=== PATIENT | female | born 1965 | race Caucasian/White ===

== ENCOUNTER 2021-05-30 14:08 | Emergency (ER) | payer OTHER, SELFPAY ==
[2021-05-30 14:11] VITALS: BP 142/87; PULSE 73; RESP 20; TEMP 37; O2SAT 100
--- NOTE | 2021-05-30 14:28 | ED.URI ---
HPI - URI/Sore Throat General Chief Complaint: Upper Respiratory Infection Stated Complaint: chills headaches nausea Time Seen by Provider: 05/30/21 14:30 Source: patient and RN notes reviewed Mode of arrival: ambulatory Limitations: no limitations History of Present Illness HPI Narrative: 56-year-old female presents with concern for 5-day history of fever, chills, body aches, fatigue, headache, ear and facial pain, reports diarrhea, vomiting and nausea. Reports she had Covid at the beginning of the year and has been vaccinated. She denies cough, shortness of breath. Reports she has been taking [id number] remedies with no relief. MD elicited complaint: other (headaches) Related Data Home Medications Medication Instructions Recorded Confirmed lovastatin 40 mg PO DAILY 05/30/21 05/30/21 Allergies Allergy/AdvReac Type Severity Reaction Status Date / Time tree and shrub pollen Allergy Mild Itching Verified 05/30/21 14:25 bupropion Allergy Unknown Swelling Verified 05/30/21 14:25 of Lip/Tongue/Throat Grass Allergy Mild Itching Uncoded 05/30/21 14:31 Shrimp Allergy Unknown ITCHING Uncoded 05/30/21 14:31 Review of Systems Review of Systems: CONSTITUTIONAL: Reports malaise, chills, sweats, fever. EYES: Denies visual changes, redness, or discharge. ENT: Reports rhinorrhea, congestion, sinus pain, and sore throat. Reports ear pain CARDIOVASCULAR: Denies chest pain, palpitations, or edema. RESPIRATORY: Denies cough. Denies dyspnea. GASTROINTESTINAL: Denies abdominal pain. Reports nausea, vomiting, diarrhea SKIN: Denies rash or itching. MUSCULOSKELETAL: Reports myalgia. NEUROLOGIC: Reports headache. All systems reviewed & are unremarkable except as noted in HPI and below PMFSH Past Medical History Medical History (Updated 05/30/21 @ 14:39 by Elizabeth Jane NP) Anxiety Depression Essential (primary) hypertension Hyperlipidemia Surgical History Surgical History (Updated 09/02/19 @ 16:35 by Elsie Nugent NP) History of carpal tunnel release of both wrists 2019 Family History Family History (Updated 06/25/16 @ 15:35 by DOCTOR UNKNOWN) Mother Diabetes mellitus Acute myocardial infarction Cerebrovascular accident Family history of congestive heart failure Family history of type 2 diabetes mellitus Family history of heart disease in male family member before age 55 Father Acute myocardial infarction Family history of heart disease in male family member before age 55 Social History Social History Smoking status: Never smoker Alcohol intake: current Comments At time of signature, agree with nursing past medical, surgical, social and family history. There is no relevant family history pertinent to the presenting complaint Exam Narrative: GENERAL: Well-appearing, well-nourished, and in no acute distress. HEAD: Normocephalic EYES: PERRLA, conjunctivae clear ENT: Mucous membranes moist. TM pearly castillo with dull light reflex bilaterally; no tragal tenderness. Oropharynx erythematous without lesions. NECK: Supple. No lymphadenopathy CHEST: Clear to auscultation, breath sounds equal. No wheezing, rhonchi, rales, or stridor. No respiratory distress, speaks in full sentences. HEART: Regular rate and rhythm. No murmur heard. SKIN: Warm, dry, no rash. NEURO: Alert and oriented x3. PSYCH: Normal mood and affect Course Course Emergency Course: Patient is aware of diagnosis, understands and agrees to treatment plan. Anticipatory guidance given. Patient agrees to follow-up as directed and is aware of reasons to seek care at the emergency department. Portions of this record may have been created with voice recognition software Vital Signs Vital signs: Vital Signs Temperature 98.6 F 05/30/21 14:11 Pulse Rate 73 05/30/21 14:11 Respiratory Rate 20 05/30/21 14:11 Blood Pressure 142/87 H 05/30/21 14:11 Pulse Oximetry 100 05/30/21 14:11 Temperature 98.6 F
[2021-05-30 14:31] VITALS: BP 142/87; PULSE 73; RESP 20; TEMP 37; O2SAT 100
== END 2021-05-30 14:43 | disposition home or self-care (01) ==
PROVIDERS: Emergency Provider Nurse Practitioner
DX: J10.1 Influenza due to other identified influenza virus with other respiratory manifestations (principal); I10 Essential (primary) hypertension; E78.5 Hyperlipidemia, unspecified
CPT/HCPCS: 87804; 99213; G0463

== ENCOUNTER → 2021-08-02 09:04 | Outpatient (CLI) | payer OTHER, SELFPAY ==
[2021-08-02 21:12] LABS: SARS-CoV-2 RNA PCR Negative
== END ==
PROVIDERS: PCP Family Medicine; Visit Provider Family Medicine
DX: U07.1 COVID-19 (principal)
CPT/HCPCS: C9803; U0003; U0005

== ENCOUNTER 2021-12-24 10:06 | Outpatient (CLI) | payer OTHER, SELFPAY ==
--- NOTE | ~2021-12-24 | MM_ITS ---
EXAMINATION: MM screening harjit BI w jada HISTORY: Screening TECHNIQUE: Craniocaudal and mediolateral oblique 3-D tomosynthesis images were obtained and synthetic 2-D images were generated. CAD analysis was submitted and interpreted. COMPARISON: No prior mammogram is available for comparison at this institution. BREAST PARENCHYMAL COMPOSITION: The breasts are heterogenously dense, which may obscure small masses FINDINGS: There is no evidence of suspicious mass, calcification, or architectural distortion to sugg est malignancy in either breast. There has been no suspicious interval change. IMPRESSION: 1. No mammographic evidence of malignancy. 2. Recommend routine screening mammography in one year. BI-RADS Category 1: Negative Reviewed, dictated and finalized at location A.
== END 2021-12-24 10:07 | disposition home or self-care (01) ==
PROVIDERS: PCP Family Medicine; Visit Provider Nurse Practitioner Family
DX: Z12.31 Encounter for screening mammogram for malignant neoplasm of breast (principal)
CPT/HCPCS: 77063; 77067

== ENCOUNTER 2022-01-07 14:41 | Outpatient (CLI) | payer OTHER, SELFPAY ==
--- NOTE | ~2022-01-07 | MR_ITS ---
EXAMINATION: MR knee LT wo con DATE: 01/07/2022 16:07 INDICATION: Left knee pain. TECHNIQUE: Magnetic resonance imaging (MRI) of the left knee was performed without intravenous contra st. Sequences included axial PD-weighted FS FSE, coronal PD-weighted FSE and PD-weighted FS FSE, sagi ttal PD-weighted FSE, and sagittal T2-weighted FS FSE. COMPARISON: X-ray left knee 12/21/2021. FINDINGS: Medial compartment: Intact meniscus. Mild cartilage thinning and partial-thickness cartilage signal abnormality on the me dial condyle. Mild osteophytosis. Lateral compartment: Degenerative signal change within the body of the lateral meniscus. Mild lateral condylar cartilage t hinning. Partial-thickness cartilage signal abnormality on the lateral plateau. Mild osteophytosis. Patellofemoral compartment: Mild partial thickness cartilage signal abnormality on the medial facet. Mild osteophytosis. Intact r [place]. Ligaments and tendons: ACL, PCL, LCL, and MCL are intact. Flexor and extensor tendons are intact. Mild T2 hyperintensity maru p to the pes anserine insertion. Fluid: Minimal joint fluid. Tiny Hagan's cyst. Osseous/other: Bone marrow signal is normal. IMPRESSION: 1. Mild tricompartmental osteoarthritis of the left knee. 2. Pes anserine bursitis. Reviewed, dictated and finalized at location K.
== END 2022-01-07 14:42 | disposition home or self-care (01) ==
PROVIDERS: PCP Family Medicine; Visit Provider Nurse Practitioner Family
DX: M17.12 Unilateral primary osteoarthritis, left knee (principal); M71.562 Other bursitis, not elsewhere classified, left knee
CPT/HCPCS: 73721

== ENCOUNTER 2022-04-23 11:03 | Outpatient (CLI) | payer OTHER, SELFPAY | END 2022-04-23 11:04 | disposition home or self-care (01) | LOC: ANHGOSHLAB 11:07 | PROVIDERS: PCP Family Medicine; Visit Provider Nurse Practitioner Family | DX: E78.5 Hyperlipidemia, unspecified (principal); I10 Essential (primary) hypertension | CPT/HCPCS: 36415 ==

== ENCOUNTER 2023-05-15 08:55 | Outpatient (CLI) | payer OTHER, SELFPAY ==
[2023-05-15 12:41] LABS: Basophils Absolute Auto 0.1 K/mm3 (0.0-0.1); Basophils Percent Auto 0.7 % (0.2-1.2); Eosinophils Absolute Auto 0.2 K/mm3 (0-0.3); Eosinophils Percent Auto 2.3 % (0-4.4); Hematocrit 44.3 % (37.0-47.0); Immature Granulocyte Absolute 0.06 K/mm3 (0.00-0.031); Immature Granulocyte Percent A 0.7 % (0-0.5); Lymphocytes Absolute Auto 3.69 K/mm3 (0.9-3.2); Lymphocytes Percent Auto 43.1 % (18.3-44.2); Mean Corpuscular HGB Conc 31.6 g/dl (32-36); Mean Corpuscular Hemoglobin 30.6 pg (26-34); Mean Corpuscular Volume 96.9 fl (80-100); Monocytes Absolute Auto 0.6 K/mm3 (0.1-0.6); Monocytes Percent Auto 7.5 % (2.6-8.5); Neutrophils Absolute Auto 3.9 K/mm3 (1.3-6.7); Neutrophils Percent Auto 45.7 % (45.5-73.1); Platelet Count Result 288 k/mm3 (150-375); Red Blood Count 4.57 M/mm3 (4.2-5.4); White Blood Count 8.6 K/mm3 (4.5-10.0)
[2023-05-15 17:30] LABS: Alanine Aminotransferase 45 U/L (6-35); Albumin Level 4.6 g/dL (3.5-5.1); Alkaline Phosphatase 81 U/L (38-126); Anion Gap 5 mmol/L (8-16); Aspartate Amino Transferase 44 U/L (14-36); Bilirubin,Total 0.5 mg/dL (0.2-1.3); Blood Urea Nitrogen 19 mg/dL (7-17); Calcium 9.7 mg/dL (8.4-10.2); Carbon Dioxide 26 mmol/L (22-30); Chloride 107 mmol/L (98-107); Cholesterol 264 mg/dL (0-200); Estimated Glomerular Filt Rate > 60; Glucose 88 mg/dL (65-110); HDL Direct 47 mg/dL; Potassium 4.6 mmol/L (3.4-5.0); Sodium 138 mmol/L (137-145); Triglycerides 266 mg/dL (<150)
[2023-05-15 17:42] LABS: LDL Cholesterol Direct 170 mg/dL
[2023-05-15 19:31] LABS: Vitamin D 25 Hydroxy 29.2 ng/mL
== END 2023-05-15 08:56 | disposition home or self-care (01) ==
LOC: ANHGOSHLAB 08:56
PROVIDERS: PCP Family Medicine; Visit Provider Family Medicine
DX: Z00.00 Encounter for general adult medical examination without abnormal findings (principal); E78.5 Hyperlipidemia, unspecified; E55.9 Vitamin D deficiency, unspecified; I10 Essential (primary) hypertension; E53.8 Deficiency of other specified B group vitamins
CPT/HCPCS: 36415; 80053; 80061; 82306; 82607; 84443; 85025

== ENCOUNTER 2023-07-15 08:04 | Emergency (ER) | payer OTHER, SELFPAY ==
[2023-07-15 08:14] VITALS: BP 137/70; PULSE 107; RESP 18; TEMP 37.1; O2SAT 95
--- NOTE | 2023-07-15 08:20 | ED.URI ---
HPI - URI/Sore Throat General Chief Complaint: Upper Respiratory Infection Stated Complaint: Sore Throat/Congestion Time Seen by Provider: 07/15/23 08:21 Source: patient, RN notes reviewed and old records reviewed Mode of arrival: ambulatory Limitations: no limitations History of Present Illness HPI Narrative: 58yearold female who presents to [facility] with complaints of sore throat, cough and some bilateral ear pain, nasal drainage since Friday morning. Patient reports she has been taking Zyrtec and DayQuil and NyQuil for her symptoms without resolution. Patient reports no known sick contacts. Patient reports she did have COVID over . Patient reports feeling fatigued,denies any body aches,fevers, or chills. MD elicited complaint: cough, sore throat, rhinorrhea, nasal congestion and other (ear pain) Pertinent past history: other (Covid over ) Onset (ago): day(s) (3) Pain scale (0-10): 4 Able to tolerate fluids by mouth: Yes Exacerbating factors: swallowing Treatments prior to arrival: other (Zyrtec, DayQuil and NyQuil) Related Data Home Medications Medication Instructions Recorded Confirmed cetirizine 10 mg tablet (Zyrtec) 10 mg PO DAILY 10/02/21 07/15/23 buspirone 5 mg tablet 5 mg PO BID PRN anxiety 05/15/23 07/15/23 Allergies Allergy/AdvReac Type Severity Reaction Status Date / Time tree and shrub pollen Allergy Mild Itching Verified 07/15/23 08:24 bupropion Allergy Unknown Swelling Verified 07/15/23 08:24 of Lip/Tongue/Throat Citalopram Analogues AdvReac rash and Verified 07/15/23 08:24 itching Review of Systems Review of Systems: CONSTITUTIONAL: Denies malaise, chills, sweats, or fever.reports fatigue EYES: Denies visual changes, redness, or discharge. ENT: Reports rhinorrhea, congestion, no sinus pain,positive otalgia and sore throat. CARDIOVASCULAR: Denies chest pain, palpitations, or edema. RESPIRATORY: Reports cough.? Denies dyspnea. GASTROINTESTINAL: Denies abdominal pain, nausea, vomiting, diarrhea SKIN: Denies rash or itching. MUSCULOSKELETAL: Denies myalgia. NEUROLOGIC: Denies headache. All systems reviewed & are unremarkable except as noted in HPI and below PMFSH Past Medical History Medical History Anxiety Depression Environmental allergies Essential (primary) hypertension Hyperlipidemia Left knee DJD Surgical History Surgical History History of carpal tunnel release of both wrists 2019 History of laparoscopic cholecystectomy History of total hysterectomy History of tubal ligation Family History Family History Mother Diabetes mellitus Acute myocardial infarction Cerebrovascular accident Family history of congestive heart failure Family history of type 2 diabetes mellitus Family history of heart disease in male family member before age 55 Father Acute myocardial infarction Family history of heart disease in male family member before age 55 Other Arthritis Heart disease Hypertension Social History Social History Social History: Patient is . 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 Smoking status: Never smoker Alcohol intake: current Drinks per week: 8 Substance use: never Substance use type: does not use Lack of Transportation: No Lack of Food: Never True Current Housing: I Have Housing Concerned About Future Housing: No Difficulty Paying Gas/Electric Bills: No Difficulty Paying for Meds: No Currently Unemployed: No Education: High School Diploma/GED Difficulty w/ Childcare or Family Care: No Living arrangements: with family Occupation/Education: occupation Additional occupation/education comments: [employer]
== END 2023-07-15 08:38 | disposition home or self-care (01) ==
PROVIDERS: Emergency Provider Registered Nurse; PCP Family Medicine
DX: J06.9 Acute upper respiratory infection, unspecified (principal); J02.9 Acute pharyngitis, unspecified; F41.9 Anxiety disorder, unspecified; F32.A Depression, unspecified; E78.5 Hyperlipidemia, unspecified; I10 Essential (primary) hypertension; Z79.899 Other long term (current) drug therapy
CPT/HCPCS: 87081; 87804; 87880; 99213; G0463

== ENCOUNTER 2023-11-12 15:32 | Outpatient (CLI) | payer OTHER, SELFPAY ==
[2023-11-12 19:32] LABS: Alanine Aminotransferase 124 U/L (6-35); Albumin Level 4.9 g/dL (3.5-5.1); Alkaline Phosphatase 89 U/L (38-126); Anion Gap 10 mmol/L (4-12); Aspartate Amino Transferase 81 U/L (14-36); Bilirubin,Total 1.1 mg/dL (0.2-1.3); Blood Urea Nitrogen 18 mg/dL (7-17); Calcium 9.8 mg/dL (8.4-10.2); Carbon Dioxide 22 mmol/L (22-30); Chloride 106 mmol/L (98-107); Cholesterol 136 mg/dL (0-200); Estimated Glomerular Filt Rate > 60; Glucose 99 mg/dL (65-110); HDL Direct 42 mg/dL; Potassium 4.4 mmol/L (3.4-5.0); Sodium 138 mmol/L (137-145); Triglycerides 101 mg/dL (<150)
[2023-11-12 19:44] LABS: LDL Cholesterol Direct 77 mg/dL
[2023-11-12 19:47] LABS: Vitamin D 25 Hydroxy 91.4 ng/mL
== END 2023-11-12 15:33 | disposition home or self-care (01) ==
LOC: ANHGOSHLAB 15:34
PROVIDERS: PCP Family Medicine; Visit Provider Nurse Practitioner
DX: E78.5 Hyperlipidemia, unspecified (principal); E55.9 Vitamin D deficiency, unspecified; F32.9 Major depressive disorder, single episode, unspecified; E53.8 Deficiency of other specified B group vitamins
CPT/HCPCS: 36415; 80053; 80061; 82306; 82607; 84443

== ENCOUNTER 2023-11-17 08:05 | Outpatient (CLI) | payer OTHER, SELFPAY ==
--- NOTE | ~2023-11-17 | US_ITS ---
Abdominal Sonogram: Real-time sonographic imaging of the abdomen was performed. Clinical History: Abnormal serum enzyme levels Findings: The liver appears mildly echogenic, with no evidence of mass lesion or bile duct dilatatio n. Main portal vein demonstrates normal direction of flow. The spleen is normal in size without evide nce of focal lesion. The gallbladder is absent, compatible prior cholecystectomy. The common bile du ct measures 4 mm. The visualized pancreas, aorta, and IVC are unremarkable. The right kidney measur es 11.4 cm in length and the left kidney measures 11.4 cm. There is no hydronephrosis or renal calcu ayah. Impression: Probable fatty infiltration of liver. Status post cholecystectomy. Reviewed, dictated and finalized at location . Impression: Probable fatty infiltration of liver. Status post cholecystectomy.
== END 2023-11-17 08:06 ==
LOC: GOSHIMG 08:05
PROVIDERS: PCP Family Medicine; Visit Provider Nurse Practitioner
DX: R74.8 Abnormal levels of other serum enzymes (principal); K76.0 Fatty (change of) liver, not elsewhere classified; Z90.49 Acquired absence of other specified parts of digestive tract
CPT/HCPCS: 76700

== ENCOUNTER 2023-12-24 14:58 | Outpatient (CLI) | payer OTHER, SELFPAY ==
--- NOTE | ~2023-12-24 | DEXA_ITS ---
Bone Density Report Name: TAMMY AMAYA Age: 58 Sex: Female Ethnicity: White Date of : 1965 Indication: postmenopausal; screening for osteoporosis; height loss; history of glucocorticoids; hysterectomy; Referring Provider: SVETLANA LAY Study: Bone densitometry was performed. Exam Date: December 24, 2023 Accession number: [id number] Bone Density: Region BMD T-score Z-score Classification AP Spine(L1-L4) 1.316 2.4 3.7 Normal Femoral Neck (Left) 0.909 0.5 1.7 Normal Total Hip (Left) 1.136 1.6 2.4 Normal Femoral Neck (Right) 0.918 0.6 1.8 Normal Total Hip (Right) 1.131 1.5 2.4 Normal Total Hip Mean 1.133 1.6 2.4 Normal World Health Organization criteria for BMD impression classify patients as: Normal (T-score at or above -1.0), Osteopenia (T-score between -1.0 and -2.5), or Osteoporosis (T-score at or below -2.5). 10-year Fracture Risk: FRAX not reported because: All T-scores for Spine Total, Hip Total, Femoral Neck at or above -1.0 Clinical Information Provided by Patient: Has taken Glucocorticoids Has used the following medications: Vitamin D Has the following medical conditions: Hysterectomy Patient maximum height was 63.5 Menopause Age: 41 No regular weight bearing exercise Drinks caffeinated beverages Onset of menses at age 12 Number of children 1 Impression: The patient has normal bone mass. The patient has risk factors, including: history of glucocorticoid therapy. Discussion: BONE DENSITY IS ABOVE THE MINIMUM DESIRABLE LEVEL AT ALL SKELETAL SITES TESTED. This patient?s bone mineral density is above the minimum desirable level (T-score -1.0 or better) at all sites measured. The patient should follow a healthful lifestyle (good nutrition with adequate calcium and vitamin D, and appropriate weight-bearing exercise). Follow-Up: Consider repeating this study in 5 years or sooner if there is some new clinical indication. Reported by: AYO on 12/24/2023 3:31:00 PM. Reviewed, dictated and finalized at location [facility]Fl[facility]
== END 2023-12-24 14:59 | disposition home or self-care (01) ==
LOC: ANHIMG 15:04
PROVIDERS: PCP Family Medicine; Visit Provider Family Medicine
DX: Z78.0 Asymptomatic menopausal state (principal)
CPT/HCPCS: 77080